=== PATIENT | male | born 1990 | race Caucasian/White ===

== ENCOUNTER 2017-02-19 11:30 | Emergency (ER) | payer OTHER ==
[2017-02-19 11:47] VITALS: TEMP 98.4
[2017-02-19 12:11] LABS: PLATELET COUNT 200 10^3/uL (150-400)
[2017-02-19] MEDS ORDERED: NS 1,000 ML IV ONE (12:56)
[2017-02-19] MEDS ORDERED: IOPAMIDOL (ISOVUE-300) 100 ML BTL ONE (13:02)
--- NOTE | 2017-02-19 14:01 | EDPHY ---
H & P Time Seen by Provider: 02/19/17 12:18 HPI/ROS: CHIEF COMPLAINT: Abdominal pain HISTORY OF PRESENT ILLNESS: 26-year-old male presents to the emergency department with right-sided abdominal pain that began this morning. The patient states that he drank heavily last night. He also admits to snorting cocaine. He states he woke up this morning and took some Adderall for the hang over and shortly thereafter developed severe right-sided abdominal pain. Patient states that it is been constant. It has improved some although it is still there. No vomiting or diarrhea. Had a normal bowel movement yesterday. No urinary symptoms. Patient also tells me that he has had intermittent palpable lump to the right scrotum on and off for years. He has never seen a urologist for this. He does not know if this is related. No back pain. No chest pain or difficulty breathing. REVIEW OF SYSTEMS: Constitutional: No fever, no chills. Eyes: No double or blurry vision. ENT: No sore throat. Respiratory: No cough, no shortness of breath. Cardiac: No chest pain. Gastrointestinal: Abdominal pain as above. No vomiting or diarrhea. Genitourinary: No dysuria. Musculoskeletal: No neck or back pain. Skin: No rashes. Neurological: No headache. Past Medical/Surgical History: Negative Social History: Single Smoking Status: Current some day smoker Physical Exam: General Appearance: Alert, no distress. Afebrile. No apparent distress. Eyes: Pupils equal and round. Extraocular motions are all intact. ENT: Mouth: Mucous membranes moist. Respiratory: No wheezing, rhonchi, or rales, lungs are clear to auscultation. Cardiovascular: Regular rate and rhythm. Gastrointestinal: Abdomen is soft. Tenderness with palpation in the right mid to lower abdomen. There is no rebound, guarding or masses noted. No CVA tenderness bilaterally. Neurological: Alert and oriented x 3, cranial nerves II through XII grossly intact Genitourinary: Circumcised penis. Patient has a nontender palpable lump in the right testicle. Compresses. Possible varicocele. No other palpable lumps noted. Nontender to palpate. Skin: Warm and dry, no rashes. Musculoskeletal: Nontender to palpate along the cervical, thoracic or lumbar spine. Neck is supple. Extremities: Full range of motion and no peripheral edema. Psychiatric: Patient is oriented X 3, there is no agitation. Constitutional: Initial Vital Signs Temperature (C) 36.9 C 02/19/17 11:45 Heart Rate 82 02/19/17 11:45 Respiratory Rate 16 02/19/17 11:45 Blood Pressure 117/73 02/19/17 11:45 O2 Sat (%) 99 02/19/17 11:45 O2 Delivery Mode Room Air Allergies/Adverse Reactions: No Known Allergies Allergy (Unverified 02/19/17 11:45) Home Medications: Medication Instructions Recorded NK [No Known Home Meds] 02/19/17 Medical Decision Making - Diagnostics Imaging Results: Imaging Impressions Abdomen CT 02/19/17 12:57 Impression: No CT findings for appendicitis. Moderate constipation. Results called and discussed with Twila Naqvi PA-C on February 19, 2017 at 1338 hours. Imaging: Discussed imaging studies w/ call centre supervisor Radiologist ED Course/Re-evaluation: 26-year-old male presents with right-sided abdominal pain. Patient has elevated white blood cell count. He has not been vomiting. I was concerned about possible acute appendicitis. I discussed the pros and cons including radiation exposure the patient agrees. CT imaging reveals a normal appendix. Patient has had intermittent palpable lump that has been nontender to the right scrotum and testicle for years. I did offer testicular ultrasound, however the patient declined. I recommended close follow up with urologist on-call to have this further evaluated. Patient was instructed to return to the emergency department if he had worsening abdominal pain, fever, or if he has any other concerns. Differential Diagnosis: Including but not limited to acute appendicitis, constipation, dehydration, electrolyte abnormality, testicular cancer, hydrocele, varicocele, epididymitis , STD - Data Points Laboratory Results: Laboratory Results 02/19/17 11:55 02/19/17 11:55 02/19/17 02/19/17 11:55 11:55 WBC 14.91 10^3/uL H 10^3/uL (3.80-9.50) RBC 5.29 10^6/uL 10^6/uL (4.40-6.38) Hgb 16.0 g/dL g/dL (13.7-17.5) Hct 46.5 % % (40.0-51.0) MCV 87.9 fL fL (81.5-99.8) MCH 30.2 pg pg (27.9-34.1) MCHC 34.4 g/dL g/dL (32.4-36.7) RDW 13.2 % % (11.5-15.2) Plt Count 200 10^3/uL 10^3/uL (150-400) MPV 8.7 fL fL (8.7-11.7) Neut % (Auto) 83.6 % H % (39.3-74.2) Lymph % (Auto) 8.9 % L % (15.0-45.0) [place] % (Auto) 6.4 % % (4.5-13.0) Eos % (Auto) 0.1 % L % (0.6-7.6) Baso % (Auto) 0.5 % % (0.3-1.7) Nucleat RBC Rel Count 0.0 % % (0.0-0.2) Absolute Neuts (auto) 12.46 10^3/uL H 10^3/uL (1.70-6.50) Absolute Lymphs (auto) 1.32 10^3/uL 10^3/uL (1.00-3.00) Absolute Monos (auto) 0.96 10^3/uL H 10^3/uL (0.30-0.80) Absolute Eos (auto) 0.01 10^3/uL L 10^3/uL (0.03-0.40) Absolute Basos (auto) 0.08 10^3/uL 10^3/uL (0.02-0.10) Absolute Nucleated RBC 0.00 10^3/uL 10^3/uL (0-0.01) Immature Gran % 0.5 % % (0.0-1.1) Immature Gran # 0.08 10^3/uL 10^3/uL (0.00-0.10) Sodium 145 mEq/L H mEq/L (134-144) Potassium 3.6 mEq/L mEq/L (3.5-5.2) Chloride 104 mEq/L mEq/L (97-110) Carbon Dioxide 23 mEq/l mEq/l (22-31) Anion Gap 18 mEq/L H mEq/L (8-16) BUN 11 mg/dL mg/dL (7-23) Creatinine 1.0 mg/dL mg/dL (0.7-1.3) Estimated GFR > 60 Glucose 74 mg/dL mg/dL (70-100) Calcium 10.3 mg/dL mg/dL (8.5-10.4) Medications Given: Discontinued Medications Sodium Chloride (Ns) 1,000 mls @ 0 mls/hr IV ONCE ONE PRN Reason: Wide Open Stop: 02/19/17 12:57 Last Admin: 02/19/17 13:06 Dose: 1,000 mls Departure - Departure Disposition: Home, Routine, Self-Care Clinical Impression: History of testicular lump Abdominal pain Qualifiers: Abdominal location: right lower quadrant Qualified Code(s): R10.31 - Right lower quadrant pain Constipation Qualifiers: Constipation type: unspecified constipation type Qualified Code(s): K59.00 - Constipation, unspecified Condition: Good Instructions: Constipation (ED), Acute Abdominal Pain (ED) Additional Instructions: Abdominal Pain: Return to the Emergency Department immediately for increasing pain, fever, vomiting, or if not completely better in 8-12 hours. You should follow up with a urologist to discuss the intermittent, chronic palpable lump in your right testicle. Referrals: Linsey Austin MD [Medical Doctor] - As per Instructions (Urologist on-call)
[2017-02-19 14:32] VITALS: BP 130/72; PULSE 87; RESP 18; O2SAT 100
== END 2017-02-19 14:33 | disposition home or self-care (01) ==
DX: K59.00 Constipation, unspecified (principal); F17.200 Nicotine dependence, unspecified, uncomplicated; Z87.438 Personal history of other diseases of male genital organs
CPT/HCPCS: Q9967

== ENCOUNTER 2017-02-21 02:37 | Emergency (ER) | payer OTHER ==
--- NOTE | 2017-02-21 03:04 | EDPHY ---
H & P Stated Complaint: syncope Time Seen by Provider: 02/21/17 02:54 HPI/ROS: Chief Complaint: Syncope, testicular pain and swelling HPI: 26-year-old male has been having right testicular pain for the last 3 days. He was seen here 2 days ago for abdominal pain and had a negative CT scan of his abdomen. He was noted to have some testicular swelling and pain at that time but declined ultrasound. He has been having worsening testicular pain and swelling since that time. He does have an appoint with Urology later today. Since this morning pain is been worse. He got up to go the bathroom got very lightheaded. He had a syncopal episode. Landing on his face. He believes he is only unconscious for a few minutes. No chest pain or palpitations. Some nausea, no vomiting. Is complaining of some mild nose pain at this time but the testicular pain is worse. No fevers or chills. He has a history of molluscum contagiosum but no other sexually transmitted diseases. He is sexually active. No urinary urgency or frequency. No urethral discharge. ROS: 10 point Review of Systems is negative except as noted in the HPI. PMH: Denies Social History: No smoking, occasional alcohol, daily marijuana Family History: non-contributory Physical Exam: Gen: Awake, Alert, No Distress HEENT: Face: He has no abrasion on his upper lip, no facial bone tenderness or deformity. Nose: no rhinorrhea, no epistaxis, no septal hematoma Eyes: PERRLA, EOMI Mouth: Moist mucosa no mandibular tenderness Neck: Supple, no JVD Chest: nontender, lungs clear to auscultation Heart: S1, S2 normal, no murmur Abd: Soft, non-tender, no guarding Back: no CVA tenderness, no midline tenderness : Normal circumcised penis. He has a large swollen right scrotum which is tender. No erythema Ext: no edema, non-tender Skin: no rash Neuro: CN II-XII intact, Sensation grossly intact, Strength 5/5 in bilateral upper and lower extremities - Personal History Current Tetanus/Diphtheria Vaccine: Yes Current Tetanus Diphtheria and Acellular Pertussis (TDAP): Yes - Medical/Surgical History Hx Asthma: No Hx Chronic Respiratory Disease: No Hx Diabetes: No Hx Cardiac Disease: No Hx Renal Disease: No Hx Cirrhosis: No Hx Alcoholism: No Hx HIV/AIDS: No Hx Splenectomy or Spleen Trauma: No Other PMH: denies - Social History Smoking Status: Never smoked Constitutional: Initial Vital Signs Temperature (C) 36.4 C 02/21/17 02:46 Heart Rate 80 02/21/17 02:46 Respiratory Rate 16 02/21/17 02:46 Blood Pressure 111/51 L 02/21/17 02:46 O2 Sat (%) 98 02/21/17 02:46 O2 Delivery Mode Room Air Allergies/Adverse Reactions: No Known Allergies Allergy (Unverified 02/19/17 11:45) Home Medications: Medication Instructions Recorded NK [No Known Home Meds] 02/19/17 Medical Decision Making - Diagnostics EKG Interpretation: ECG time 3:08 a.m. sinus rhythm with a rate of 86, normal axis, normal intervals , no acute ST or T-wave changes. Impression: Normal ECG. Imaging Results: Right testicle ultrasound shows an enlarged heterogeneous testicle with no flow consistent with infarction and necrosis per Dr. Knox. Imaging: Discussed imaging studies w/ call circuit worker Radiologist ED Course/Re-evaluation: 26-year-old male with a likely vasovagal syncope secondary to pain from his marked testicular swelling. Will obtain ECG and scrotal ultrasound. Ultrasound shows a torsed testicle which now appears necrotic. He has no appointment with Dr. Austin at 1 o'clock this afternoon. I have discussed with Dr. Cameron Landeros, on-call Urology. He does not believe that the patient needs immediate treatment. He can see the patient 6 o'clock this afternoon but as the patient has no appointment with Dr. Austin he recommends that he follow up with her. I have discussed with the options the patient in he would like to follow up with his appointment with . Departure - Departure Disposition: Home, Routine, Self-Care Clinical Impression: Testicular torsion, Vasovagal syncope Condition: Good Instructions: Testicular Torsion (ED), Syncope (ED) Additional Instructions: Return to the emergency department for further fainting, worsening pain, fevers , chills, or any other concerns. Follow up with your urology appointment this afternoon as scheduled. Referrals: Linsey Austin MD [Medical Doctor] - As per Instructions
--- NOTE | 2017-02-21 03:09 | CPEKG ---
Heart Rate: 86 RR Interval: 698 P-R Interval: 172 QRSD Interval: 100 QT Interval: 372 QTC Interval: 445 P [place]: 52 QRS [place]: 78 T Wave [place]: 65 EKG Severity - NORMAL ECG - EKG Impression: SINUS RHYTHM Electronically Signed By: Mark Caravlho 21-Feb-2017 04:41:15
[2017-02-21 04:40] VITALS: BP 119/62; PULSE 77; RESP 18; TEMP 99; O2SAT 96
== END 2017-02-21 04:40 | disposition home or self-care (01) ==
DX: R55 Syncope and collapse (principal); N44.00 Torsion of testis, unspecified